=== PATIENT | female | born 1970 | race Caucasian/White ===

== ENCOUNTER 2019-03-14 01:25 | Inpatient (IN) | payer SELFPAY ==
[~2019-03-14] VITALS: Ht 167.6 cm; Wt 90.0 kg
[2019-03-14] VITALS (7 sets, daily range): BP systolic 134–158; BP diastolic 87–91
[2019-03-14] MEDS ORDERED: FUROSEMIDE 40 MG/4 ML VIAL IV ONE (02:30)
[2019-03-14 02:54] LABS: Basophils # (auto) 0.2 uL; Basophils % (auto) 1.8 % (0.0-2.0); Eosinophils # (auto) 0.5 uL; Eosinophils % (auto) 3.6 % (0.0-7.0); Hematocrit 38.6 % (36.0-46.0); Hemoglobin 13.1 g/dL (12.2-16.2); Lymphocytes # (auto) 3.9 uL; Lymphocytes % (auto) 29.1 % (10.0-50.0); Mean Corpuscular Hemoglobin 29.8 pg (28.0-32.0); Mean Corpuscular Hgb Conc. 33.8 g/dL (32.0-36.0); Monocytes # (auto) 1.1 uL; Monocytes % (auto) 7.8 % (0.0-12.0); Neutrophils # (auto) 7.9 uL; Neutrophils % (auto) 57.7 % (37.0-80.0); Platelet Count (auto) 433 10^3/uL (140-450); Red Blood Cells 4.39 10^6/uL (4.0-5.20); Red Cell Distribution Width 14.2 % (11.8-14.3); White Blood Cell 13.6 10^3/uL (4.4-10.8)
[2019-03-14 03:25] LABS: Potassium 3.3 mmol/L (3.5-5.1)
[2019-03-14 03:29] LABS: Bilirubin, Total 0.3 mg/dL (0.2-1.0)
[2019-03-14] MEDS ORDERED: LABETALOL HCL 5 MG/ML ML 20ML VIAL IV ONE (03:45)
[2019-03-14 05:22] LABS: Urine Bacteria FEW /hpf (None Seen); Urine Blood Negative /uL (Negative); Urine Hyaline Cast FEW /lpf (0 - 2); Urine Mucus FEW (None Seen); Urine Specific Gravity 1.006 (1.001-1.035); Urine WBC 1 /hpf (0 - 5)
[2019-03-14 05:48] LABS: Alcohol, Urine < 3.0 mg/dL (0-5); Amphetamine Screen, Urine NEGATIVE (NEGATIVE); Barbiturate Scree,Urine NEGATIVE (NEGATIVE); Benzodiazephine Screen, Urine NEGATIVE (NEGATIVE); Cannabinoid Screen, Urine NEGATIVE (NEGATIVE); Cocaine Screen, Urine NEGATIVE (NEGATIVE); Opiate Scree,Urine NEGATIVE (NEGATIVE); Phencyclidine Screen, Urine NEGATIVE (NEGATIVE)
[2019-03-14] MEDS ORDERED: cloNIDine HCL 0.1 MG TAB PO ONE (07:15)
[2019-03-14] MEDS ORDERED: MORPHINE SULF INJ 2 MG/ML SYRINGE 1ML IV PRN (07:15)
[2019-03-14] MEDS ORDERED: ATORVASTATIN 20 MG TAB PO ONE (07:15)
[2019-03-14] MEDS ORDERED: ONDANSETRON HCL 4 MG/2 ML VIAL IV PRN (07:15)
[2019-03-14] MEDS ORDERED: ACETAMINOPHEN 325 MG TAB PO PRN (07:15)
[2019-03-14] MEDS ORDERED: TEMAZEPAM 15 MG CAP PO PRN (07:15)
[2019-03-14] MEDS ORDERED: cloNIDine HCL 0.1 MG TAB PO PRN (07:15)
[2019-03-14] MEDS ORDERED: NITROGLYCERIN 0.4 MG SL TAB SL PRN (07:15)
[2019-03-14] MEDS ORDERED: ENOXAPARIN SOD 100 MG/1 ML SYRINGE SC ONE (07:15)
[2019-03-14] MEDS ORDERED: POTASSIUM CHL 20 Meq TABLET PO ONE (07:30)
[2019-03-14 07:45] LABS: Cholesterol 169 mg/dL (< 200)
[2019-03-14 07:47] LABS: HDL Cholesterol 46 mg/dL (40-59); LDL Cholesterol 108 mg/dL (< 100); Triglycerides 128 mg/dL (< 150)
[2019-03-14 08:15] LABS: Urine Pregnacy Test Negative (Negative)
[2019-03-14] MEDS: CARVEDILOL 12.5 MG TAB PO SCH ×2 (08:52→21:59)
[2019-03-14] MEDS: ASPirin 81 mg TAB PO SCH (08:52)
--- NOTE | 2019-03-14 09:46 | NUR ---
Telemetry admit from [facility] admitted to Telemetry unit after SBAR received. Patient oriented to Tejas Eason, primary RN, unit, room, bed, and unit policies regarding patient care and visiting hours. Patient now on continuous telemetry monitoring, tele box #[id number] and telemetry reading on arrival to unit is sinus rhythm. Weighed by bedscale and encouraged to call if they need something. All questions and concerns addressed, patient verbalized understanding.
[2019-03-14] MEDS ORDERED: METOPROLOL TARTRATE 25 MG TAB PO SCH (10:00)
[2019-03-14] MEDS ORDERED: BUMETANIDE 1mg/4ml VIAL (0.25mg/ml) IV ONE (11:00)
[2019-03-14] MEDS: D5W/SOD CHLO 0.9% 1,000 ML IV SCH ×2 (11:23→20:35)
[2019-03-14] MEDS: FUROSEMIDE 40 MG TAB PO SCH (11:24)
[2019-03-14] MEDS: FAMOTIDINE 20 MG TAB PO SCH ×2 (11:24→22:00)
[2019-03-14] MEDS ORDERED: LISINOPRIL 20 MG TAB PO ONE (12:00)
[2019-03-14] MEDS ORDERED: BUMETANIDE 2.5mg/10ml (0.25 mg/ml) INJ IV ONE (12:30)
--- NOTE | 2019-03-14 19:25 | NUR ---
Opening Shift Note Assumed care of patient, awake and alert. No S/S of distress/SOB or pain. Bed locked in lowest position, side rails upx2, call light within reach, bed alarm on. Current telemetry reading is sinus rhythm at 80bpm. Instructed on POC and to call for assist PRN, will continue to monitor for changes Q1hr and PRN.
[2019-03-14] MEDS ORDERED: ATORVASTATIN 20 MG TAB PO SCH (22:00)
[2019-03-15 05:48] VITALS: BP 128/84
[2019-03-15 06:25] LABS: Basophils # (auto) 0.1 uL; Basophils % (auto) 0.5 % (0.0-2.0); Eosinophils # (auto) 0.5 uL; Eosinophils % (auto) 3.8 % (0.0-7.0); Hemoglobin 13.8 g/dL (12.2-16.2); Lymphocytes # (auto) 3.5 uL; Lymphocytes % (auto) 26.9 % (10.0-50.0); Mean Corpuscular Hemoglobin 29.3 pg (28.0-32.0); Mean Corpuscular Volume 88.9 fL (80.0-100.0); Monocytes # (auto) 1.1 uL; Monocytes % (auto) 8.2 % (0.0-12.0); Neutrophils # (auto) 7.9 uL; Neutrophils % (auto) 60.6 % (37.0-80.0); Nucleated Red Blood Cells % 0.1 %; Platelet Count (auto) 432 10^3/uL (140-450); Red Blood Cells 4.72 10^6/uL (4.0-5.20); Red Cell Distribution Width 14.4 % (11.8-14.3)
[2019-03-15 06:53] LABS: BUN/Creatinine Ratio 25.6; Calcium 8.6 mg/dL (8.5-10.1); Potassium 3.2 mmol/L (3.5-5.1)
[2019-03-15 08:00] VITALS: BP 155/73
[2019-03-15 09:11] VITALS: BP 155/73
[2019-03-15] MEDS: D5W/SOD CHLO 0.9% 1,000 ML IV SCH (09:55)
[2019-03-15] MEDS ORDERED: LISINOPRIL 20 MG TAB PO SCH (10:00)
[2019-03-15] MEDS: CARVEDILOL 12.5 MG TAB PO SCH (10:04)
[2019-03-15] MEDS: ASPirin 81 mg TAB PO SCH (10:04)
[2019-03-15] MEDS: FAMOTIDINE 20 MG TAB PO SCH (10:05)
[2019-03-15] MEDS: FUROSEMIDE 40 MG TAB PO SCH (10:05)
[2019-03-15 11:40] VITALS: BP 155/73
[2019-03-15] MEDS ORDERED: POTASSIUM CHL 20 Meq TABLET PO ONE (11:45)
[2019-03-15 12:44] VITALS: BP 144/97
--- NOTE | 2019-03-15 15:00 | NUR ---
Discharge instructions given as ordered. Encourage to follow up with PMD as instructed. All questions and concerns addressed. Patient verbalized understanding. Medication reconciliation form completed and copy given to patient. IV removed with catheter intact, pressure dressing applied. Telemetry unit returned to ICU. Patient ambulated to vehicle with all personal belongings, accompanied by staff and family member. No distress noted at time of departure.
[2019-03-16] MEDS ORDERED: POTASSIUM CHL 20 Meq TABLET PO SCH (10:00)
--- NOTE | 2019-03-16 16:07 | NUR ---
sed special education teacher 03/15/19 Per consult insurance/meds/access to care. Patient discharged home with no page or call to sed special education teacher SW. Addendum: 03/16/19 at 1615 by Cindy MCCAULEY Amended: Links added.
== END 2019-03-15 15:00 | disposition home or self-care (01) | DRG 280 ==
LOC: ER 01:25 → TELE 01:26 → TELE-WESTW 09:40
PROVIDERS: ADMIT Nurse Practitioner; ATTEND Nurse Practitioner
DX: I21.A1 Myocardial infarction type 2 (principal); I50.43 Acute on chronic combined systolic (congestive) and diastolic (congestive) heart failure; I11.0 Hypertensive heart disease with heart failure; I16.0 Hypertensive urgency; F15.90 Other stimulant use, unspecified, uncomplicated; G47.00 Insomnia, unspecified; E87.6 Hypokalemia; E66.9 Obesity, unspecified; Z72.89 Other problems related to lifestyle; Z88.0 Allergy status to penicillin; Z91.14 Patient's other noncompliance with medication regimen; Z79.899 Other long term (current) drug therapy
CPT/HCPCS: 36415; 71045; 80048; 80053; 80061; 80307; 81001; 81025; 83880; 84484; 85025; 93005; 93306; 96372; 96374; 96375; G0378

== ENCOUNTER 2021-08-21 12:04 | Inpatient (IN) | payer SELFPAY ==
[~2021-08-21] VITALS: Ht 167.6 cm; Wt 101.1 kg
[2021-08-21] MEDS ORDERED: FUROSEMIDE 100 MG/10ML VIAL IV ONE (12:45)
[2021-08-21] MEDS ORDERED: NITROGLYCERIN 0.4 MG SL TAB SL ONE (12:45)
[2021-08-21] MEDS ORDERED: ASPirin 325 MG TAB PO ONE (14:15)
[2021-08-21 14:51] LABS: Basophils # (auto) 0.1 10 ^3/uL (0-0.2); Basophils % (auto) 0.6 % (0.0-2.0); Eosinophils # (auto) 0.2 10 ^3/uL (0-0.8); Eosinophils % (auto) 1.7 % (0.0-7.0); Hematocrit 43.9 % (36.0-46.0); Hemoglobin 14.4 g/dL (12.2-16.2); Lymphocytes # (auto) 2.5 10 ^3/uL (0.4-5.4); Lymphocytes % (auto) 22.5 % (10.0-50.0); Mean Corpuscular Hgb Conc. 32.9 g/dL (32.0-36.0); Mean Corpuscular Volume 88.1 fL (80.0-100.0); Monocytes # (auto) 0.9 10 ^3/uL (0-1.3); Monocytes % (auto) 8.4 % (0.0-12.0); Neutrophils # (auto) 7.5 10 ^3/uL (1.6-8.6); Neutrophils % (auto) 66.8 % (37.0-80.0); Nucleated Red Blood Cells % 0.1 %; Red Blood Cells 4.98 10^6/uL (4.0-5.20); Red Cell Distribution Width 14.6 % (11.8-14.3); White Blood Cell 11.2 10^3/uL (4.4-10.8)
[2021-08-21 15:07] LABS: Albumin 3.4 g/dL (3.4-5.0); BUN/Creatinine Ratio 16.7; Calcium 8.9 mg/dL (8.5-10.1); Potassium 3.3 mmol/L (3.5-5.1)
[2021-08-21 15:11] LABS: Bilirubin, Total 0.6 mg/dL (0.2-1.0); Total Protein 7.8 g/dL (6.4-8.2)
[2021-08-21] MEDS ORDERED: MORPHINE SULFATE INJECTION 2 MG/ML SYRG IV PRN (15:45)
[2021-08-21] MEDS ORDERED: NITROGLYCERIN 0.4 MG SL TAB SL PRN (15:45)
[2021-08-21] MEDS ORDERED: hydrALAZINE HCL 20 MG/ML VL IV PRN (16:00)
[2021-08-21] MEDS ORDERED: HEPARIN SODIUM (PORCINE) 5000 UNITS/ML 1ML VIAL IV ONE (16:00)
[2021-08-21] MEDS ORDERED: hydrALAZINE HCL 20 MG/ML VL IV ONE (16:00)
[2021-08-21] MEDS ORDERED: ALBUTEROL SULF 2.5 MG/0.5ML(0.5%) NEB SOLN NEB PRN (16:15)
[2021-08-21] MEDS ORDERED: cefTRIAXone 1GM/50ML D5W 50 ML IV ONE (16:15)
[2021-08-21] MEDS ORDERED: cefTRIAXone 1GM/50ML D5W 50 ML IV SCH (16:19)
[2021-08-21] MEDS ORDERED: POTASSIUM CHL 20 Meq TABLET PO ONE (16:30)
[2021-08-21] MEDS ORDERED: AZITHROMYCIN 500MG/ 250ML 250 ML IV ONE (16:30)
[2021-08-21] MEDS ORDERED: HEPARIN SODIUM (PORCINE) 5000 UNITS/ML 1ML VIAL SC ONE (16:30)
[2021-08-21] MEDS ORDERED: IOHEXOL 350 MG/ML 100ML IJ ONE (16:38)
[2021-08-21 16:39] LABS: Alcohol, Urine < 3.0 mg/dL (0-10); Amphetamine Screen, Urine POSITIVE (NEGATIVE); Barbiturate Scree,Urine NEGATIVE (NEGATIVE); Benzodiazephine Screen, Urine NEGATIVE (NEGATIVE); Cannabinoid Screen, Urine NEGATIVE (NEGATIVE); Cocaine Screen, Urine NEGATIVE (NEGATIVE); Opiate Scree,Urine NEGATIVE (NEGATIVE); Phencyclidine Screen, Urine NEGATIVE (NEGATIVE)
[2021-08-21 16:42] LABS: Urine Bacteria FEW /hpf (None Seen); Urine Blood Negative /uL (Negative); Urine Hyaline Cast FEW /lpf (0 - 2); Urine Mucus FEW (None Seen); Urine Specific Gravity 1.023 (1.001-1.035); Urine WBC 4 /hpf (0 - 5)
[2021-08-21 19:58] LABS: INR 1.18 (0.9-1.15)
[2021-08-21] MEDS ORDERED: CARVEDILOL 12.5 MG TAB PO SCH (22:00)
[2021-08-21] MEDS ORDERED: HEPARIN SODIUM (PORCINE) 5000 UNITS/ML 1ML VIAL SC SCH (22:00)
[2021-08-21 23:00] VITALS: BP 135/95
[2021-08-21] MEDS: ENOXAPARIN SOD 100 MG/1 ML SYRINGE SC SCH (23:42)
[2021-08-22] MEDS ORDERED: TRIATAB3 PO (01:48)
[2021-08-22 02:07] VITALS: BP 135/95
[2021-08-22 05:00] VITALS: BP 143/95
[2021-08-22] MEDS ORDERED: CARV25TA55 PO (05:13)
[2021-08-22] MEDS ORDERED: BENA20TA14 PO (05:13)
[2021-08-22] MEDS ORDERED: FUROSEMIDE 40 MG/4 ML VIAL IV ONE (07:30)
[2021-08-22 07:50] LABS: BUN/Creatinine Ratio 17.9; Calcium 8.2 mg/dL (8.5-10.1); Potassium 3.9 mmol/L (3.5-5.1)
[2021-08-22 09:00] VITALS: BP 141/95
[2021-08-22] MEDS: CARVEDILOL 12.5 MG TAB PO SCH (09:03)
[2021-08-22] MEDS: BENAZEPRIL HCL 10 MG TAB PO SCH (09:04)
[2021-08-22] MEDS: ENOXAPARIN SOD 100 MG/1 ML SYRINGE SC SCH (09:04)
[2021-08-22] MEDS: DAPAGLIFLOZIN 5 MG TAB PO SCH (09:04)
[2021-08-22] MEDS ORDERED: AZITHROMYCIN 500MG/ 250ML 250 ML IV SCH (10:00)
[2021-08-22 13:00] VITALS: BP 108/73
[2021-08-22 17:00] VITALS: BP 121/77
[2021-08-22] MEDS: FUROSEMIDE 40 MG/4 ML VIAL IV SCH (18:09)
[2021-08-22 22:00] VITALS: BP 124/74
[2021-08-23] MEDS: CARVEDILOL 12.5 MG TAB PO SCH ×2 (00:01→08:30)
[2021-08-23] MEDS: ENOXAPARIN SOD 100 MG/1 ML SYRINGE SC SCH ×2 (00:02→08:30)
[2021-08-23 05:00] VITALS: BP 124/75
[2021-08-23] MEDS: FUROSEMIDE 40 MG/4 ML VIAL IV SCH (06:47)
[2021-08-23] MEDS: BENAZEPRIL HCL 10 MG TAB PO SCH (08:29)
[2021-08-23] MEDS: DAPAGLIFLOZIN 5 MG TAB PO SCH (09:28)
[2021-08-23] MEDS ORDERED: POTA10TA51 PO (11:02)
[2021-08-23] MEDS ORDERED: FURO40TA4 PO (11:02)
[2021-08-23] MEDS ORDERED: DAPA1TAB4 PO (11:02)
== END 2021-08-23 15:36 | disposition home health service (06) | DRG 280 ==
LOC: ER 12:04 → TELE 15:34 → TELE-WESTW 19:48
PROVIDERS: ADMIT Registered Nurse; ATTEND Family Medicine
DX: I11.0 Hypertensive heart disease with heart failure (principal); I50.43 Acute on chronic combined systolic (congestive) and diastolic (congestive) heart failure; I21.A1 Myocardial infarction type 2; J81.1 Chronic pulmonary edema; I16.1 Hypertensive emergency; I42.7 Cardiomyopathy due to drug and external agent; E66.9 Obesity, unspecified; F15.90 Other stimulant use, unspecified, uncomplicated; Z20.822 Contact with and (suspected) exposure to COVID-19; F17.200 Nicotine dependence, unspecified, uncomplicated; Z91.19 Patient's noncompliance with other medical treatment and regimen; Z68.36 Body mass index [BMI] 36.0-36.9, adult; Z90.49 Acquired absence of other specified parts of digestive tract; Z88.0 Allergy status to penicillin
CPT/HCPCS: 36415; 71045; 71275; 80048; 80053; 80307; 81001; 83735; 83880; 84443; 84484; 85025; 85379; 85610; 87040; 93005; 93306; 93886; 96365; 96372; 96375; 99291; G0378

== ENCOUNTER 2023-06-01 05:57 | Inpatient (IN) | payer BC, OTHER ==
[~2023-06-01] VITALS: Ht 167.6 cm; Wt 102.4 kg
[~2023-06-01 05:57] MED LIST: BENA-36 PO; CARV25TA55 PO; DAPA1TAB4 PO; FURO40TA4 PO; POTA10TA51 PO; TRIATAB3 PO
[2023-06-01] MEDS ORDERED: BENAZEPRIL HCL 10 MG TAB PO ONE (06:45)
[2023-06-01] MEDS ORDERED: CARVEDILOL 12.5 MG TAB PO ONE (06:45)
[2023-06-01] MEDS ORDERED: FUROSEMIDE 20 MG TAB PO ONE (06:45)
[2023-06-01 07:13] LABS: Basophils # (auto) 0.2 10 ^3/uL (0-0.2); Basophils % (auto) 1.3 % (0.0-2.0); Eosinophils # (auto) 0.3 10 ^3/uL (0-0.8); Eosinophils % (auto) 2.4 % (0.0-7.0); Hematocrit 41.6 % (36.0-46.0); Hemoglobin 13.2 g/dL (12.2-16.2); Lymphocytes # (auto) 3.5 10 ^3/uL (0.4-5.4); Lymphocytes % (auto) 27.7 % (10.0-50.0); Mean Corpuscular Hemoglobin 28.4 pg (28.0-32.0); Mean Corpuscular Hgb Conc. 31.8 g/dL (32.0-36.0); Mean Corpuscular Volume 89.3 fL (80.0-100.0); Monocytes # (auto) 0.8 10 ^3/uL (0-1.3); Monocytes % (auto) 6.3 % (0.0-12.0); Neutrophils # (auto) 7.9 10 ^3/uL (1.6-8.6); Neutrophils % (auto) 62.3 % (37.0-80.0); Nucleated Red Blood Cells % 0.2 %; Red Blood Cells 4.66 10^6/uL (4.0-5.20); Red Cell Distribution Width 14.8 % (11.8-14.3); White Blood Cell 12.7 10^3/uL (4.4-10.8)
[2023-06-01 07:19] LABS: INR 1.12 (0.9-1.15); Partial Thromboplastin Time 25.8 SEC (24.5-34.5); Prothrombin Time 11.7 sec (9.3-11.8)
[2023-06-01 07:27] LABS: Alanine Aminotransferase 156 U/L (7-40); Albumin 4.2 g/dL (3.2-4.8); Alkaline Phosphatase 99 U/L (46-116); Anion Gap 7 (5-15); Aspartate Aminotransferase 129 U/L (13-40); BUN/Creatinine Ratio 12.7 (10.0-20.0); Blood Urea Nitrogen 13 mg/dL (9-23); Calcium 9.2 mg/dL (8.7-10.4); Carbon Dioxide 26 mmol/L (20-30); Chloride 103 mmol/L (98-107); Glucose 108 mg/dL (74-106); Magnesium 1.9 mg/dL (1.6-2.6); Potassium 3.4 mmol/L (3.5-5.1); Sodium 136 mmol/L (136-145)
[2023-06-01 07:28] LABS: Bilirubin, Total 0.6 mg/dL (0.2-1.0); Total Protein 7.7 g/dL (5.7-8.2)
[2023-06-01] MEDS ORDERED: CARV25TA55 PO ×2 (07:34)
[2023-06-01] MEDS ORDERED: BENA-36 PO ×2 (07:34)
[2023-06-01] MEDS ORDERED: FURO40TA4 PO ×2 (07:34)
[2023-06-01] MEDS ORDERED: FUROSEMIDE 40 MG/4 ML VIAL IV ONE (08:00)
[2023-06-01] MEDS ORDERED: ASPirin-EC 325mg tab PO ONE (08:00)
[2023-06-01] MEDS ORDERED: POTASSIUM EFFERVESENT TAB 25 MEQ PO ONE (08:15)
[2023-06-01] MEDS ORDERED: ENOXAPARIN SOD 100 MG/1 ML SYRINGE SC ONE (08:15)
[2023-06-01 09:45] VITALS: PULSE 64; RESP 25; O2SAT 95
[2023-06-01] MEDS ORDERED: hydrALAZINE HCL 20 MG/ML VL IV PRN (10:45)
[2023-06-01 20:32] VITALS: BP 121/83; PULSE 69; RESP 19; TEMP 97.7; O2SAT 94
[2023-06-01 22:00] VITALS: BP 122/79; PULSE 74; RESP 18; TEMP 97.4; O2SAT 94
[2023-06-01] MEDS ORDERED: BENAZEPRIL HCL 10 MG TAB PO SCH (22:00)
[2023-06-01] MEDS ORDERED: FUROSEMIDE 20 MG/2 ML VIAL IV SCH (22:00)
[2023-06-01] MEDS: ATORVASTATIN 20 MG TAB PO SCH (22:20)
[2023-06-01] MEDS: CARVEDILOL 12.5 MG TAB PO SCH (22:20)
[2023-06-01] MEDS: FUROSEMIDE 40 MG/4 ML VIAL IV SCH (22:21)
[2023-06-02] VITALS (7 sets, daily range): BP systolic 111–130; BP diastolic 65–94; PULSE 66–85; RESP 15–19; TEMP 97.3–98.1; O2SAT 92–99
[2023-06-02 01:24] LABS: Amphetamine Screen, Urine Pos (NEGATIVE); Barbiturate Scree,Urine Neg (NEGATIVE); Benzodiazephine Screen, Urine Neg (NEGATIVE); Cocaine Screen, Urine Neg (NEGATIVE); Opiate Scree,Urine Neg (NEGATIVE)
[2023-06-02 01:25] LABS: Cannabinoid Screen, Urine Neg (NEGATIVE); Phencyclidine Screen, Urine Neg (NEGATIVE)
[2023-06-02 06:20] LABS: Basophils # (auto) 0.1 10 ^3/uL (0-0.2); Basophils % (auto) 0.8 % (0.0-2.0); Eosinophils # (auto) 0.3 10 ^3/uL (0-0.8); Eosinophils % (auto) 2.9 % (0.0-7.0); Hematocrit 37.3 % (36.0-46.0); Hemoglobin 12.4 g/dL (12.2-16.2); Lymphocytes # (auto) 2.7 10 ^3/uL (0.4-5.4); Lymphocytes % (auto) 30.6 % (10.0-50.0); Mean Corpuscular Hemoglobin 29.3 pg (28.0-32.0); Mean Corpuscular Hgb Conc. 33.3 g/dL (32.0-36.0); Mean Corpuscular Volume 87.9 fL (80.0-100.0); Monocytes # (auto) 0.7 10 ^3/uL (0-1.3); Monocytes % (auto) 8.2 % (0.0-12.0); Neutrophils % (auto) 57.5 % (37.0-80.0); Nucleated Red Blood Cells % 0.2 %; Red Blood Cells 4.24 10^6/uL (4.0-5.20); Red Cell Distribution Width 14.4 % (11.8-14.3); White Blood Cell 8.8 10^3/uL (4.4-10.8)
[2023-06-02 06:39] LABS: Alanine Aminotransferase 119 U/L (7-40); Albumin 3.5 g/dL (3.2-4.8); Alkaline Phosphatase 81 U/L (46-116); Anion Gap 10 (5-15); Aspartate Aminotransferase 67 U/L (13-40); BUN/Creatinine Ratio 19.4 (10.0-20.0); Bilirubin, Total 0.7 mg/dL (0.2-1.0); Blood Urea Nitrogen 20 mg/dL (9-23); Calcium 8.4 mg/dL (8.7-10.4); Carbon Dioxide 24 mmol/L (20-30); Chloride 107 mmol/L (98-107); Glucose 102 mg/dL (74-106); Potassium 3.6 mmol/L (3.5-5.1); Sodium 141 mmol/L (136-145); Total Protein 6.4 g/dL (5.7-8.2)
[2023-06-02] MEDS: CARVEDILOL 12.5 MG TAB PO SCH ×2 (08:38→20:18)
[2023-06-02] MEDS: FUROSEMIDE 40 MG/4 ML VIAL IV SCH ×2 (08:38→20:18)
[2023-06-02] MEDS: EMPAGLIFLOZIN 10 MG TAB PO SCH (08:38)
[2023-06-02] MEDS: SPIRONOLACTONE 25 MG TAB PO SCH (08:38)
[2023-06-02] MEDS ORDERED: TRIAMTERENE/HCTZ 37.5/25 MG CAP/TAB PO SCH (10:00)
[2023-06-02] MEDS ORDERED: FUROSEMIDE 40 MG TAB PO SCH (10:00)
[2023-06-02] MEDS: SACUBITRIL-VALSARTAN 24mg/26mg TAB PO SCH (20:18)
[2023-06-02] MEDS: ATORVASTATIN 20 MG TAB PO SCH (20:19)
[2023-06-02] MEDS ORDERED: TEMAZEPAM 15 MG CAP PO PRN (21:45)
[2023-06-03 05:11] VITALS: BP 139/78; PULSE 62; RESP 18; TEMP 97.8; O2SAT 95
[2023-06-03 06:18] LABS: Alanine Aminotransferase 120 U/L (7-40); Albumin 3.6 g/dL (3.2-4.8); Alkaline Phosphatase 89 U/L (46-116); Anion Gap 8 (5-15); Aspartate Aminotransferase 58 U/L (13-40); BUN/Creatinine Ratio 15.8 (10.0-20.0); Bilirubin, Total 0.8 mg/dL (0.2-1.0); Blood Urea Nitrogen 16 mg/dL (9-23); Calcium 9.1 mg/dL (8.5-10.1); Carbon Dioxide 30 mmol/L (20-30); Chloride 104 mmol/L (98-107); Glucose 90 mg/dL (74-106); Potassium 3.7 mmol/L (3.5-5.1); Sodium 142 mmol/L (136-145); Total Protein 6.8 g/dL (5.7-8.2)
[2023-06-03 08:00] VITALS: PULSE 62
[2023-06-03 08:15] VITALS: BP 122/73; PULSE 64; RESP 18; TEMP 97.6; O2SAT 96
[2023-06-03 09:46] LABS: Hepatitis B Core Total AB Negative (Negative)
[2023-06-03] MEDS: SPIRONOLACTONE 25 MG TAB PO SCH (09:58)
[2023-06-03] MEDS: SACUBITRIL-VALSARTAN 24mg/26mg TAB PO SCH (09:58)
[2023-06-03] MEDS: FUROSEMIDE 40 MG/4 ML VIAL IV SCH (09:59)
[2023-06-03] MEDS: CARVEDILOL 12.5 MG TAB PO SCH (10:00)
[2023-06-03] MEDS: EMPAGLIFLOZIN 10 MG TAB PO SCH (10:00)
[2023-06-03 12:20] VITALS: BP 116/65; PULSE 56; RESP 20; TEMP 97.6; O2SAT 93
[2023-06-03 15:12] LABS: Hepatitis A Total Antibody Positive (Negative); Hepatitis B Surface Antibody Negative (Negative); Hepatitis B Surface Antigen Negative (Negative); Hepatitis C Antibody Negative (Negative)
== END 2023-06-03 16:12 | disposition left against medical advice (07) | DRG 280 ==
LOC: ER 05:57 → TELE 10:15 → TELE-EAST 18:48
PROVIDERS: ADMIT Nurse Practitioner Family; ATTEND Family Medicine
DX: I11.0 Hypertensive heart disease with heart failure (principal); I50.43 Acute on chronic combined systolic (congestive) and diastolic (congestive) heart failure; I21.A1 Myocardial infarction type 2; J96.20 Acute and chronic respiratory failure, unspecified whether with hypoxia or hypercapnia; I16.1 Hypertensive emergency; I42.7 Cardiomyopathy due to drug and external agent; D72.829 Elevated white blood cell count, unspecified; E66.01 Morbid (severe) obesity due to excess calories; K76.0 Fatty (change of) liver, not elsewhere classified; Z53.29 Procedure and treatment not carried out because of patient's decision for other reasons; T50.905A Adverse effect of unspecified drugs, medicaments and biological substances, initial encounter; E78.00 Pure hypercholesterolemia, unspecified; E87.6 Hypokalemia; F15.10 Other stimulant abuse, uncomplicated; I25.2 Old myocardial infarction; Z68.36 Body mass index [BMI] 36.0-36.9, adult; Z88.0 Allergy status to penicillin; Z71.51 Drug abuse counseling and surveillance of drug abuser; Z90.49 Acquired absence of other specified parts of digestive tract; Z91.148 Patient's other noncompliance with medication regimen for other reason; Z98.51 Tubal ligation status; Y92.89 Other specified places as the place of occurrence of the external cause
CPT/HCPCS: 36415; 71045; 76705; 80053; 80307; 82728; 83735; 83880; 84484; 85025; 85610; 85730; 86038; 86704; 86706; 86708; 86803; 87340; 93005; 93306; G0378